=== PATIENT | female | born 1975 | race Caucasian/White ===

== ENCOUNTER 2017-01-08 18:43 | Emergency (ER) | payer OTHER ==
[~2017-01-08] VITALS: Ht 177.8 cm; Wt 106.2 kg
[~2017-01-08 18:43] MED LIST: AMOX875T20 PO; MMW SSP; Z.0.NO CURRENT MEDS
[2017-01-08 18:53] VITALS: BP 152/87; PULSE 99; RESP 16; TEMP 98.5; O2SAT 97
[2017-01-08 19:33] LABS: GLUCOSE,URINE 100 mg/dL (NEG); KETONE, URINE NEG (NEG)
[2017-01-08] MEDS ORDERED: LISI10TA3 PO (19:33)
[2017-01-08] MEDS ORDERED: DEPO150I IM (19:34)
[2017-01-08 19:40] LABS: BLOOD, URINE MOD (NEG); NITRITE,URINE POS (NEG)
[2017-01-08 19:41] LABS: URINE COLOR AMBER (YELLW/STRAW)
[2017-01-08 19:42] LABS: MUCUS URINE FEW /lpf (OCC)
[2017-01-08 19:43] LABS: BACTERIA, URINE FEW /hpf; COMMENT (UR) CULTURE INDICATED; CULTURE IF INDICATED CULTURE INDICATED; SQUAMOUS EPITHELIAL CELL URINE > 8 /hpf (0-5)
[2017-01-08] MEDS ORDERED: MACR100C2 PO (19:55)
[2017-01-08] MEDS ORDERED: ZOFR4TAB3 SL (19:55)
--- NOTE | 2017-01-08 19:55 | PD ---
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 The patient reports that she recently restarted her lisinopril. She states whenever she is on this medication she usually has some side effects including GI side effects. She has been having some diarrhea. Today she began to experience some suprapubic abdominal discomfort described as a pressure as well as increased urinary frequency and dysuria. She is also felt somewhat nauseous. No fevers or chills. No vaginal bleeding or discharge. She took Azo and cranberry juice at home PFSH Past Medical History Diminished Hearing: No Genitourinary: Yes (KIDNEY "SCARRING", RECURRENT UTI'S ( FSGS )) Hypertension: Yes (DUE TO PRETECURIA) ?: Not Menopausal: No : 1 Para: 1 Miscarriage: 0 : 0 Social History Alcohol Use: Yes Tobacco Use: No Substance Use: No Allergies-Medications (Allergen,Severity, Reaction): Coded Allergies: No Known Allergies (Verified , 01/08/17) Reported Meds & Prescriptions Reported Meds & Active Scripts Active Reported Depo-Provera Inj (Medroxyprogesterone Inj) 150 Mg/Ml Inj 150 Mg IM ONCE Lisinopril 10 Mg Tab 10 Mg PO DAILY Review of Systems Except as stated in HPI: all other systems reviewed are Neg Physical Exam Narrative GENERAL: Well-developed, well-nourished, no apparent distress. SKIN: Focused skin assessment warm/dry. No rash. HEAD: Atraumatic. Normocephalic. EYES: Pupils equal and round. No scleral icterus. No injection or drainage. ENT: Mucous membranes pink and moist. CARDIOVASCULAR: Regular rate and rhythm. RESPIRATORY: No accessory muscle use. Clear to auscultation. Breath sounds equal bilaterally. GASTROINTESTINAL: Abdomen soft, nondistended. Mild suprapubic tenderness without peritoneal signs. Normal bowel sounds. MUSCULOSKELETAL: No obvious deformities. No clubbing. No cyanosis. No edema. NEUROLOGICAL: Awake and alert. No obvious cranial nerve deficits. Motor grossly within normal limits. Normal speech. PSYCHIATRIC: Appropriate mood and affect; insight and judgment normal. Data Data Last Documented VS Vital Signs Date Time Temp Pulse Resp B/P Pulse Ox O2 Delivery O2 Flow Rate FiO2 01/08/17 18:53 98.5 99 16 152/87 97 Orders Urinalysis - C+S If Indicated (01/08/17 19:10) Ed Urine Pregnancytest Poc (01/08/17 19:10) Urine Culture (01/08/17 19:20) Nitrofurantoin Monohyd Macrocr (Macrobid (01/08/17 20:00) Ondansetron Odt (Zofran Odt) (01/08/17 20:00) Labs Laboratory Tests Test 01/08/17 19:20 Urine Color YULY Urine Turbidity CLEAR Urine pH 5.0 Urine Specific [place] 1.014 Urine Protein 300 OR GREATER mg/dL Urine Glucose (UA) 100 mg/dL Urine Ketones NEG mg/dL Urine Occult Blood MOD Urine Nitrite POS Urine Bilirubin NEG Urine Leukocyte Esterase TRACE Urine RBC 4-9 /hpf Urine WBC 20-24 /hpf Urine Squamous Epithelial > 8 /hpf Cells Urine Bacteria FEW /hpf Urine Mucus FEW /lpf Microscopic Urinalysis Comment CULTURE INDICATED MDM Medical Decision Making Medical Screen Exam Complete: Yes Emergency Medical Condition: Yes Medical Record Reviewed: Yes Differential Diagnosis UTI, cystitis, pyelonephritis, diverticulitis Narrative Course Vital signs reviewed. UA shows yuly urine, 300 or greater protein, moderate occult blood, positive nitrites, trace leukocyte esterase, 4-9 RBCs, 20-24 WBCs, few bacteria, culture indicated. Bedside glucose is 101. Patient's symptoms and UA are consistent with UTI. Patient does not believe she has an episode of diverticulitis at this moment. There is some mild suprapubic tenderness without peritoneal signs. Plan at this point is to start the patient on Macrobid and to have her follow up with her primary care physician this week. Patient informed on when to return to the emergency department. She verbalizes understanding and agreement with plan. Diagnosis Primary Impression: UTI (urinary tract infection) Qualified Code: N30.01 - Acute cystitis with hematuria Referrals: Primary Care Physician 3 days Additional Instructions: Follow-up with your primary care physician this week. Take antibiotic as prescribed. Return to the emergency department for worsening symptoms or any other concerns. Scripts Ondansetron Odt (Zofran Odt)4 Mg Tab4 Mg SL Q6HR PRN (Nausea/Vomiting) #15 TAB Ref 0 Prov:Baldo Louie MD 01/08/17 Nitrofurantoin Monohydrate Macrocrystals (Macrobid)100 Mg [id number] Mg PO BID 5 Days Ref 0 Prov:Baldo Louie MD 01/08/17 Disposition: 01 DISCHARGE HOME Condition: Stable Baldo Louie MD Jan 08, 2017 19:55
[2017-01-08] MEDS ORDERED: NITROFURANTOIN MONOHYD MACROCR 100 MG CAP PO ONE (20:00)
[2017-01-08] MEDS ORDERED: ONDANSETRON ODT 4 MG TAB PO ONE (20:00)
== END 2017-01-08 20:20 | disposition home or self-care (01) ==
LOC: PHED 18:43
DX: N30.01 Acute cystitis with hematuria (principal); B96.1 Klebsiella pneumoniae [K. pneumoniae] as the cause of diseases classified elsewhere
CPT/HCPCS: 81001; 84703; 87077; 87086; 87186; 99284